=== PATIENT | female | born 1945 | race Caucasian/White ===

== ENCOUNTER 2020-10-15 12:03 | Emergency (ER) | payer MEDICARE, OTHER ==
[2020-10-15] MEDS ORDERED: SODIUM CHLORIDE 0.9% 1,000 ML IV STA (12:44)
[2020-10-15] MEDS ORDERED: HYDROmorphone 0.5 MG/0.5 ML SYRINGE IVP STA ×2 (12:44→15:51)
--- NOTE | 2020-10-15 12:48 | ED ---
General Adult HPI - General Chief complaint: Back Pain/Injury Stated complaint: Fall, back pain Time Seen by Provider: 10/15/20 12:26 Source: patient, RN notes reviewed Mode of arrival: ambulatory Limitations: no limitations - History of Present Illness Initial comments: Patient is a pleasant 75-year-old female presenting to the emergency department with concern for back trauma. Patient was walking with her dog yesterday when she tripped and fell. Patient did land with her back into a bench. Patient is having discomfort since that time, somewhat severe specialist in the night. Patient does have some chronic back problems including arthritis and occasional spasms. Area of discomfort is right lateral upper lumbar/lower thoracic region. No hematuria. No abdominal pain. Patient denies any head injury or loss of consciousness. - Related Data Allergies Allergy/AdvReac Type Severity Reaction Status Date / Time aspirin Allergy leg Verified 10/15/20 12:18 numbness Penicillins Allergy Rash/Hives Verified 10/15/20 12:18 Sulfa (Sulfonamide Allergy Unknown Verified 10/15/20 12:18 Antibiotics) trimethobenzamide Allergy lower ext Verified 10/15/20 12:18 [From [facility]] weakness Review of Systems ROS Statement: Those systems with pertinent positive or pertinent negative responses have been documented in the HPI. ROS Other: All systems not noted in ROS Statement are negative. Constitutional: Denies: fever Eyes: Denies: eye pain ENT: Denies: ear pain Respiratory: Denies: cough, dyspnea Cardiovascular: Denies: chest pain Endocrine: Denies: fatigue Gastrointestinal: Denies: abdominal pain, nausea Genitourinary: Denies: dysuria Musculoskeletal: Reports: as per HPI Past Medical History Additional Past Medical History / Comment(s): bowel obstruction History of Any Multi-Drug Resistant Organisms: None Reported Past Surgical History: Bowel Resection Past Psychological History: No Psychological Hx Reported Smoking Status: Former smoker Past Alcohol Use History: None Reported Past Drug Use History: None Reported General Exam Limitations: no limitations General appearance: alert, in no apparent distress Head exam: Present: atraumatic, normocephalic Eye exam: Present: normal appearance Neck exam: Present: normal inspection. Absent: tenderness Respiratory exam: Present: normal lung sounds bilaterally Cardiovascular Exam: Present: regular rate, normal rhythm GI/Abdominal exam: Present: soft. Absent: distended, tenderness, guarding, rebound, rigid Extremities exam: Present: normal inspection, full ROM. Absent: tenderness Back exam: Present: tenderness (Patient has tenderness near the right CVA region. There is abrasion and tenderness of the lower ribs posterior, approximately 10/11.), CVA tenderness (R) Neurological exam: Present: alert Psychiatric exam: Present: normal affect, normal mood Skin exam: Present: normal color Course Vital Signs 10/15/20 10/15/20 12:12 15:04 Temperature 97.4 F L 97.9 F Pulse Rate 80 79 Respiratory 20 16 Rate Blood Pressure 140/75 128/69 O2 Sat by Pulse 98 97 Oximetry Medical Decision Making - Medical Decision Making Patient reevaluated and resting comfortably in bed, improved. Patient and family updated on results and plan. Patient is receptive to repeat medication prior to discharge. Patient is on pain medication at home. - Lab Data Result diagrams: 10/15/20 13:20 10/15/20 13:20 Lab Results 10/15/20 10/15/20 10/15/20 Range/Units 13:20 13:20 13:20 WBC 10.3 (3.8-10.6) k/uL RBC 4.71 (3.80-5.40) m/uL Hgb 14.6 (11.4-16.0) gm/dL Hct 44.5 (34.0-46.0) % MCV 94.5 (80.0-100.0) fL MCH 31.0 (25.0-35.0) pg MCHC 32.8 (31.0-37.0) g/dL RDW 13.1 (11.5-15.5) % Plt Count 203 (150-450) k/uL MPV 8.4 Neutrophils % 84 % Lymphocytes % 9 % Monocytes % 6 % Eosinophils % 0 % Basophils % 0 % Neutrophils # 8.7 H (1.3-7.7) k/uL Lymphocytes # 0.9 L (1.0-4.8) k/uL Monocytes # 0.6 (0-1.0) k/uL Eosinophils # 0.0 (0-0.7) k/uL Basophils # 0.0 (0-0.2) k/uL PT 10.3 (9.0-12.0) sec INR 1.0 (<1.2) APTT 19.0 L (22.0-30.0) sec Sodium (137-145) mmol/L Potassium (3.5-5.1) mmol/L Chloride (98-107) mmol/L Carbon Dioxide (22-30) mmol/L Anion Gap mmol/L BUN (7-17) mg/dL Creatinine (0.52-1.04) mg/dL Est GFR (CKD-EPI)AfAm (>60 ml/min/1.73 sqM) Est GFR (CKD-EPI)NonAf (>60 ml/min/1.73 sqM) Glucose (74-99) mg/dL Calcium (8.4-10.2) mg/dL Total Bilirubin (0.2-1.3) mg/dL AST (14-36) U/L ALT (4-34) U/L Alkaline Phosphatase (38-126) U/L Total Protein (6.3-8.2) g/dL Albumin (3.5-5.0) g/dL Amylase (30-110) U/L Lipase (23-300) U/L Urine Color Yellow Urine Appearance Clear (Clear) Urine pH 5.5 (5.0-8.0) Ur Specific [place] 1.021 (1.001-1.035) Urine Protein Negative (Negative) Urine Glucose (UA) Negative (Negative) Urine Ketones Negative (Negative) Urine Blood Trace H (Negative) Urine Nitrite Negative (Negative) Urine Bilirubin Negative (Negative) Urine Urobilinogen <2.0 (<2.0) mg/dL Ur Leukocyte Esterase Negative (Negative) Urine RBC 1 (0-5) /hpf Urine WBC 1 (0-5) /hpf Ur Squamous Epith Cells 1 (0-4) /hpf Urine Mucus Occasional H (None) /hpf 10/15/20 Range/Units 13:20 WBC (3.8-10.6) k/uL RBC (3.80-5.40) m/uL Hgb (11.4-16.0) gm/dL Hct (34.0-46.0) % MCV (80.0-100.0) fL MCH (25.0-35.0) pg MCHC (31.0-37.0) g/dL RDW (11.5-15.5) % Plt Count (150-450) k/uL MPV Neutrophils % % Lymphocytes % % Monocytes % % Eosinophils % % Basophils % % Neutrophils # (1.3-7.7) k/uL Lymphocytes # (1.0-4.8) k/uL Monocytes # (0-1.0) k/uL Eosinophils # (0-0.7) k/uL Basophils # (0-0.2) k/uL PT (9.0-12.0) sec INR (<1.2) APTT (22.0-30.0) sec Sodium 137 (137-145) mmol/L Potassium 4.3 (3.5-5.1) mmol/L Chloride 103 (98-107) mmol/L Carbon Dioxide 26 (22-30) mmol/L Anion Gap 8 mmol/L BUN 12 (7-17) mg/dL Creatinine 0.54 (0.52-1.04) mg/dL Est GFR (CKD-EPI)AfAm >90 (>60 ml/min/1.73 sqM) Est GFR (CKD-EPI)NonAf >90 (>60 ml/min/1.73 sqM) Glucose 103 H (74-99) mg/dL Calcium 9.4 (8.4-10.2) mg/dL Total Bilirubin 1.2 (0.2-1.3) mg/dL AST 33 (14-36) U/L ALT 22 (4-34) U/L Alkaline Phosphatase 52 (38-126) U/L Total Protein 6.7 (6.3-8.2) g/dL Albumin 4.2 (3.5-5.0) g/dL Amylase 47 (30-110) U/L Lipase 101 (23-300) U/L Urine Color Urine Appearance (Clear) Urine pH (5.0-8.0) Ur Specific [place] (1.001-1.035) Urine Protein (Negative) Urine Glucose (UA) (Negative) Urine Ketones (Negative) Urine Blood (Negative) Urine Nitrite (Negative) Urine Bilirubin (Negative) Urine Urobilinogen (<2.0) mg/dL Ur Leukocyte Esterase (Negative) Urine RBC (0-5) /hpf Urine WBC (0-5) /hpf Ur Squamous Epith Cells (0-4) /hpf Urine Mucus (None) /hpf - Radiology Data Radiology results: report reviewed (Computed tomography scan of abdomen and pelvis shows no acute process), image reviewed (X-ray and rib x-rays show no acute process) Disposition Clinical Impression: Back contusion Disposition: HOME SELF-CARE Condition: Stable Instructions (If sedation given, give patient instructions): Back Pain (ED), Contusion in Adults (ED) Additional Instructions: Please do follow-up with primary care physician in the next couple days for recheck. Return for increased pain, difficulty breathing, vomiting, blood in urine, worsening or changing symptoms or concerns. Is patient prescribed a controlled substance at d/c from ED?: No Referrals: Tyron Pelletier MD [REFERRING] - 1-2 days Time of Disposition: 15:57
[2020-10-15 13:43] LABS: Basophils % (A) 0 %; Eosinophils % (A) 0 %; HCT 44.5 % (34.0-46.0); HGB 14.6 gm/dL (11.4-16.0); Lymphocytes # (A) 0.9 k/uL (1.0-4.8); Lymphocytes % (A) 9 %; MCHC 32.8 g/dL (31.0-37.0); MCV 94.5 fL (80.0-100.0); Mean Platelet Volume 8.4; Monocytes # (A) 0.6 k/uL (0-1.0); Monocytes % (A) 6 %; Neutrophils # (A) 8.7 k/uL (1.3-7.7); Neutrophils % (A) 84 %; Platelet Count 203 k/uL (150-450); RBC 4.71 m/uL (3.80-5.40); RDW 13.1 % (11.5-15.5); WBC 10.3 k/uL (3.8-10.6)
[2020-10-15 13:50] LABS: Appearance,Urine Clear (Clear); Bilirubin,Urine Negative (Negative); Blood,Urine Trace (Negative); Color,Urine Yellow; Glucose,Urine (UA) Negative (Negative); Ketones,Urine Negative (Negative); Leukocyte Esterase,Urine Negative (Negative); Mucus,Urine Occasional /hpf; Nitrite,Urine Negative (Negative); PH, Urine 5.5 (5.0-8.0); Protein,Urine Negative (Negative); RBC,Urine 1 /hpf (0-5); Specific Gravity,Urine 1.021 (1.001-1.035); Squamous Epithelial Cell,Urine 1 /hpf (0-4); Urobilinogen,Urine <2.0 mg/dL (<2.0); WBC,Urine 1 /hpf (0-5)
[2020-10-15 14:00] LABS: ALT 22 U/L (4-34); African American GFR (CKD) >90 (>60 ml/min/1.73 sqM); Albumin 4.2 g/dL (3.5-5.0); Amylase 47 U/L (30-110); Anion Gap 8 mmol/L; Blood Urea Nitrogen 12 mg/dL (7-17); Calcium 9.4 mg/dL (8.4-10.2); Carbon Dioxide 26 mmol/L (22-30); Chloride 103 mmol/L (98-107); Glucose 103 mg/dL (74-99); Lipase 101 U/L (23-300); Non-African American GFR(CKD) >90 (>60 ml/min/1.73 sqM); Sodium 137 mmol/L (137-145); Total Bilirubin 1.2 mg/dL (0.2-1.3); Total Protein 6.7 g/dL (6.3-8.2)
[2020-10-15 14:07] LABS: AST 33 U/L (14-36); Alkaline Phosphatase 52 U/L (38-126); Potassium 4.3 mmol/L (3.5-5.1)
[2020-10-15 14:09] LABS: Prothrombin Time 10.3 sec (9.0-12.0)
--- NOTE | 2020-10-15 15:04 | CT ---
EXAMINATION TYPE: CT abdomen pelvis w con DATE OF EXAM: 10/15/2020 COMPARISON: None INDICATION: Fall today. Right sided back pain DLP: 676.9 mGycm, Automated exposure control for dose reduction was used. CONTRAST: 100 mL of Isovue 300. Study performed without Oral Contrast TECHNIQUE: Axial images were obtained from above the diaphragm to the pubic rami in the axial plane a t 5 mm thick sections. Reconstructed images are reviewed on the computer in the coronal plane. FINDINGS: Limited CT sections are obtained the lung bases. Mild compressive atelectasis within the dependent p ortions of the lung bases.. CT ABDOMEN: No free air is evident. No organ laceration identified. Liver: There is a cyst on the right lobe liver. Some extrahepatic biliary duct prominence is present. Common bile duct appears normal. Spleen: Normal Pancreas: Normal Adrenal glands: The adrenal glands are normal. Gallbladder: Surgically absent Kidneys: There is a 3.5 cm cyst measuring 10 Hounsfield units on the lateral pole left kidney. There is a large inferior-anterior pole cyst on the right kidney. 7 cm 12 Hounsfield units. There appears t o be peripelvic cysts present on the left.. No hydronephrosis is present. No cysts are present. De layed images were obtained through the kidneys. Aorta: Normal Inferior vena cava: Normal. CT PELVIS: Loops of bowel within the abdomen and pelvis are normal. This study is performed without oral con trast limiting pelvic evaluation. Bowel surgery appears to be within the lower central pelvis. Rectos igmoid junction surgery is evident. Appendix: Not identified. No suspicious dilated tubular structure or inflammatory changes are evident . Urinary bladder: Decompressed limiting evaluation. Genitourinary structures: Uterus and ovaries are not identified. Osseous structures: No suspicious lytic or sclerotic lesions. IMPRESSIONS: 1. Postsurgical changes within the bowel. No obstruction is evident. 2. Large simple appearing cysts in the bilateral kidneys. 3. No suspicious acute posttraumatic changes
[2020-10-15 15:05] VITALS: BP 128/69; PULSE 79; RESP 16; TEMP 97.9
--- NOTE | 2020-10-15 15:39 | XR ---
EXAMINATION TYPE: XR ribs RT w pa chest xray DATE OF EXAM: 10/15/2020 COMPARISON: None INDICATION: Trauma, right side pain TECHNIQUE: Frontal and lateral views of the chest are obtained. FINDINGS: The heart size is normal. The pulmonary vasculature is normal. The lungs are clear. No pneumothorax is evident. No displaced rib fractures are identified. IMPRESSION: 1. No acute fractures.
== END 2020-10-15 16:19 | disposition home or self-care (01) ==
LOC: EC 12:03
DX: S20.221A Contusion of right back wall of thorax, initial encounter (principal); Z87.891 Personal history of nicotine dependence; Z88.0 Allergy status to penicillin; Z88.2 Allergy status to sulfonamides; W01.0XXA Fall on same level from slipping, tripping and stumbling without subsequent striking against object, initial encounter; Y93.01 Activity, walking, marching and hiking
CPT/HCPCS: 36415; 80053; 82150; 83690; 85025; 85610; 85730; 81001; 71101; 74177; 96374; 96376; 96361; 99284; J1170; Q9967

== ENCOUNTER → 2021-11-21 | Outpatient (CLI) | payer MEDICARE, OTHER ==
--- NOTE | 2021-11-29 08:10 | MM ---
Reason for Exam: Screening (asymptomatic). Last mammogram was performed 1 year(s) and 1 month(s) ago. Patient History: Menarche at age 16. Patient has no children. Left ovary removed at age 17. Right ovary removed at age 38. Hysterectomy at age 38. Postmenopausal. Patient used Estrogen for 20 years. Sister had breast cancer, age 76. Risk Values: Radha 5 year model risk: 3.2%. NCI Lifetime model risk: 7.2%. Prior Study Comparison: 06/03/2018 Bilateral MG 3D screening mammo w/cad, [facility]. 10/16/2019 Bilateral MG 3D screening mammo w/cad, [facility]. 10/18/2020 Bilateral MG 3D screening mammo w/cad, [facility]. Tissue Density: The breast tissue is heterogeneously dense. This may lower the sensitivity of mammography. Findings: Analyzed By CAD. There is no suspicious group of microcalcifications or new suspicious mass in either breast. Overall Assessment: Benign, BI-RAD 2 Management: Screening Mammogram of both breasts in 1 year. A clinical breast exam by your physician is recommended on an annual basis and results should be correlated with mammographic findings. Electronically signed and approved by: Dionte Terrell M.D. [facility]iolog[facility]
== END | disposition home or self-care (01) ==
LOC: RADMAMWWP 16:02
PROVIDERS: ATTEND Pediatrics
DX: Z12.31 Encounter for screening mammogram for malignant neoplasm of breast (principal); Z78.0 Asymptomatic menopausal state; Z80.3 Family history of malignant neoplasm of breast
CPT/HCPCS: 77063; 77067